=== PATIENT | male | born 1950 | race Caucasian/White ===

== ENCOUNTER 2018-05-13 10:50 | Inpatient (IN) | payer OTHER ==
[~2018-05-13] VITALS: Ht 175.3 cm; Wt 95.3 kg
[2018-05-13 10:52] VITALS: BP 205/98
[2018-05-13 11:38] LABS: ABSOLUTE EOSINOPHILS 0.1 thou/uL (0.0-0.7); ABSOLUTE LYMPHOCYTES 1.3 thou/uL (0.8-5.3); ABSOLUTE MONOCYTES 0.7 thou/uL (0.0-1.2); ABSOLUTE NEUTROPHILS 3.8 thou/uL (1.6-8.1); BASOPHILS 0.4 %; EOSINOPHILS 1.6 %; HEMATOCRIT 36.3 % (42.0-52.0); HEMOGLOBIN 12.2 gm/dL (14.0-18.0); LYMPHOCYTES 22.6 %; MCH 28.3 pg (26.0-34.0); MCHC 33.5 g/dL (28.0-37.0); MCV 84.5 fL (80.0-100.0); MPV 8.7 fl. (7.2-11.1); NUCLEATED RBCS 0 /100WBC; PLATELET COUNT* 173 thou/uL (150-400); POLYS 63.4 %; RDW-CV 14.3 % (10.5-14.5); WBC 5.9 thou/uL (4.0-11.0)
[2018-05-13 11:48] LABS: INR 1.1; PROTIME 10.8 Seconds (9.20-11.50)
[2018-05-13 11:50] LABS: CALCIUM 8.9 mg/dL (8.5-10.1); CREATININE 0.9 mg/dL (0.6-1.3); POTASSIUM 4.6 mmol/L (3.5-5.1)
[2018-05-13 12:00] LABS: ALBUMIN 3.5 g/dL (3.4-5.0); TOTAL BILIRUBIN 0.6 mg/dL (<0.1-1.0); TOTAL PROTEIN 7.4 g/dL (6.4-8.2); TROPONIN-I LEVEL 0.07 ng/mL (<0.06)
[2018-05-13 14:34] VITALS: BP 159/68
[2018-05-13 15:31] VITALS: BP 169/91
[2018-05-13 15:35] VITALS: BP 169/91
[2018-05-13] MEDS ORDERED: LUBRICANT 0.5-015 ML OPHTHALMIC (16:32)
[2018-05-13] MEDS ORDERED: NEURONTIN 300300 M1 PO (16:34)
[2018-05-13] MEDS ORDERED: IBUPROFEN 800800 M1 PO (16:35)
[2018-05-13] MEDS ORDERED: HUMALOG100 UNIT/1 SUBQ (16:37)
[2018-05-13] MEDS ORDERED: HUMALOG100 UNIT/2 SUBQ (16:41)
[2018-05-13] MEDS ORDERED: FLOMAX0.4 MG PO (16:43)
[2018-05-13] MEDS ORDERED: PREDNISOLONE ACE5 ML OPHTHALMIC (16:46)
[2018-05-13] MEDS ORDERED: AMLODIPINE BESY10 MG PO (16:48)
[2018-05-13] MEDS ORDERED: ASPIRIN81 M2 PO (16:49)
[2018-05-13] MEDS ORDERED: LIPITOR80 MG PO (16:49)
--- NOTE | 2018-05-13 16:49 | 2DMMODE ---
[place] [address] 2 D/M-MODE ECHOCARDIOGRAM Name: ARMANDO JIMENEZ Room: [address] IN [facility]#: [id number] Admission: 05/13/18 Attend Phys: Jose F Aldana, Discharge: Date of : 46 Date of Service: 05/13/18 1648 Report #: [id number] THIS REPORT FOR: //name// APPROVED REPORT Study performed: 05/13/2018 16:11:04 EXAM: Comprehensive 2D, Doppler, and color-flow Echocardiogram Patient Location: In-Patient Room #: [facility] Status: routine BSA: 2.12 HR: 69 bpm BP: 169/91 mmHg Rhythm: NSR Other Information Study Quality: Good Indications Congestive Heart Failure Chest Pain 2D Dimensions LVEF(%): 52.43 (>50%) IVSd: 15.09 (7-11mm) LVOT Diam: 19.41 (18-24mm) LVDd: 39.67 mm PWd: 11.07 (7-11mm) Ascending Ao: 30.68 (22-36mm) LVDs: 29.16 (25-40mm) Aortic Root: 31.25 mm Lovett's LVEF: 52.43 % Volumes Left Atrial Volume (Systole) LA ESV Index: 31.00 mL/m2 Aortic Valve AoV Peak Luis.: 1.28 m/s AO Peak Gr.: 6.55 mmHg LVOT Max P.35 mmHg AO Mean Gr.: 3.96 mmHg LVOT Mean P.13 mmHg LVOT Max V: 1.04 m/s AO V2 VTI: 25.61 cm LVOT Mean V: 0.67 m/s JHOAN (VTI): 2.67 cm2 LVOT V1 VTI: 23.10 [place] [address] 2 D/M-MODE ECHOCARDIOGRAM Name: ARMANDO JIMENEZ Room: [address] IN [facility].#: [id number] Admission: 05/13/18 Attend Phys: Jose F Aladna, Discharge: Date of : 46 Date of Service: 05/13/18 1648 Report #: [id number] E/A Ratio: 2.14 MV Decel. Time: 194.76 ms MV E Max Luis.: 0.96 m/s MV PHT: 56.48 ms MVA (PHT): 3.90 cm2 TDI E/Lateral E': 9.60 E/Medial E': 12.00 Medial E' Luis.: 0.08 m/s Lateral E' Luis.: 0.10 m/s Pulmonary Valve PV Peak Luis.: 0.76 m/s PV Peak Gr.: 2.33 mmHg Tricuspid Valve RAP Estimate: 5.00 mmHg TR Peak Gr.: 25.36 mmHg RVSP: 30.36 mmHg PA Pressure: 30.36 mmHg Left Ventricle The left ventricle is normal size. There is normal LV segmental wall motion. There is normal left ventricular wall thickness. Left ventricular systolic function is normal. The left ventricular ejection fraction is within the normal range. LVEF is 55-60%. Right Ventricle The right ventricle is normal size. The right ventricular systolic function is normal. Atria The left atrium size is normal. The right atrium size is normal. Aortic Valve The aortic valve is normal in structure. No aortic regurgitation is present. There is no aortic valvular stenosis. Mitral Valve The mitral valve is normal in structure. Mild mitral regurgitation. No evidence of mitral valve stenosis. Tricuspid Valve The tricuspid valve is normal in structure. Trace tricuspid regurgitation. Borderline pulmonary [place] [address] 2 D/M-MODE ECHOCARDIOGRAM Name: ARMANDO JIMENEZ Room: [address]#: [id number] Admission: 05/13/18 Attend Phys: Jose F Aldana, Discharge: Date of : 46 Date of Service: 05/13/18 1648 Report #: [id number] The pulmonary valve is normal in structure. There is no pulmonic valvular regurgitation. Great Vessels The aortic root is normal in size. IVC is normal in size and collapses with >50% inspiration Pericardium There is no pericardial effusion. <Conclusion> The left ventricle is normal size. There is normal left ventricular wall thickness. Left ventricular systolic function is normal. The left ventricular ejection fraction is within the normal range. LVEF is 55-60%. The right ventricle is normal size. The left atrium size is normal. The aortic valve is normal in structure. The mitral valve is normal in structure. Mild mitral regurgitation. The tricuspid valve is normal in structure. IVC is normal in size and collapses with >50% inspiration There is no pericardial effusion. There is normal LV segmental wall motion. <ELECTRONICALLY SIGNED> By: Shashank Yoo MD, FACC 05/13/181647 47 47 Shashank Yoo MD, FACC /INF
[2018-05-13] MEDS ORDERED: COREG25 MG PO (16:50)
[2018-05-13] MEDS ORDERED: HYDROCHLOROTHIA25 M1 PO (16:50)
[2018-05-13] MEDS ORDERED: COZAAR 50 MG TA50 M2 PO (16:51)
[2018-05-13] MEDS ORDERED: OMEPRAZOLE 20 M20 M1 PO (16:51)
[2018-05-13 19:30] VITALS: BP 151/76
--- NOTE | 2018-05-13 19:36 | EKG ---
[place] [address] ELECTROCARDIOGRAM REPORT Name: ARMANDO JIMENEZ Room: [address] IN [facility]#: [id number] Admission: 05/13/18 Attend Phys: Jose F Aldana MD Discharge: Date of : 46 Report #: [id number] THIS REPORT FOR: //name// [facility] ED Test Date: 2018-05-13 Test Time: 10:55:11 Pat Name: ARMANDO JIMENEZ Department: Room: Gender: Chestnut Tanner: [facility] : 1950 Requested By: Flaco Greenwood Order Number: [id number] MD: Giuseppe Espinoza Measurements Intervals [place] Rate: 82 P: 49 MO: 175 QRS: 68 QRSD: 99 T: QT: 319 QTc: 373 Interpretive Statements Sinus rhythm Nonspecific repol abnormality, lateral leads Baseline wander in lead(s) III,aVF,V1,V2,V3,V4,V5 No previous ECG available for comparison Electronically Signed On 05-13-2018 19:36:24 CDT by Giuseppe Espinoza [email or web address] <ELECTRONICALLY SIGNED> By: Giuseppe Espinoza MD, FACC 05/13/18 1936 1055 1055 Giuseppe Espinoza MD, [facility] /EPI
[2018-05-14] VITALS (7 sets, daily range): BP systolic 141–186; BP diastolic 70–79
[2018-05-14 04:28] LABS: ABSOLUTE EOSINOPHILS 0.1 thou/uL (0.0-0.7); ABSOLUTE LYMPHOCYTES 1.4 thou/uL (0.8-5.3); ABSOLUTE MONOCYTES 0.9 thou/uL (0.0-1.2); BASOPHILS 0.3 %; EOSINOPHILS 1.9 %; HEMATOCRIT 35.8 % (42.0-52.0); HEMOGLOBIN 12.3 gm/dL (14.0-18.0); LYMPHOCYTES 26.5 %; MCH 28.7 pg (26.0-34.0); MCHC 34.3 g/dL (28.0-37.0); MCV 83.8 fL (80.0-100.0); MONOCYTES 16.1 %; NUCLEATED RBCS 0 /100WBC; PLATELET COUNT* 155 thou/uL (150-400); POLYS 55.2 %; RBC 4.27 mil/uL (4.50-6.00); RDW-CV 14.1 % (10.5-14.5); WBC 5.4 thou/uL (4.0-11.0)
[2018-05-14 04:47] LABS: CALCIUM 8.7 mg/dL (8.5-10.1); CREATININE 0.9 mg/dL (0.6-1.3)
--- NOTE | 2018-05-14 20:05 | CARDNUC ---
[place] [address] CARDIAC NUCLEAR IMAGING REPORT Name: ARMANDO JIMENEZ Room: [address] IN [facility]#: [id number] Admission: 05/13/18 Attend Phys: Jose F Aldana, Discharge: Date of : 46 Date of Service: 05/14/182004 Report #: [id number] THIS REPORT FOR: //name// APPROVED REPORT Study performed: 05/14/2018 08:19:00 Indication: Chest pain, Dyspnea Patient Location: In-Patient Room #: 229 Stress Tech: Juany Ruby Stress Nurse: Jacqueline Valentine RN Ht: 5 ft 9 in Wt: 217 lbs BSA: 2.14 m2 BMI: 32.04 Medical History Medical History: CHF, Diabetes, HTN, Hyperlipidemia, PVD Medications: enoxaparin, hydralazine, asa, ntg Allergies: No known drug allergies Cardiac Risk Factors: Age, DM, HTN, Hyperlipidemia, FHX of CAD Previous Cardiac Procedures: - Exercise History: Sedentary Meds Held (24 hrs): Coreg-home med Resting Data Rest SPECT myocardial perfusion imaging was performed in supine position 30 minutes following the intravenous injection of 10.5 mCi of Tc-99m Sestamibi. Time of rest injection: 14:00 The images were gated to evaluate regional wall motion and calculate left ventricular ejection fraction. Administration Route: IV Administration Site: Left Wrist Pharmacologic Stress Pharmacologic stress test was performed by injecting Regadenoson 0.4 mg IV push over 10-15 seconds immediately followed by the intravenous injection of 31.8 mCi of Tc-99m Sestamibi. Time of stress injection: 15:50 Administration Route: IV Administration Site: Left Wrist Heart Rate at time of stress injection: 94 bpm. Gated Stress SPECT was performed 40 [place] [address] CARDIAC NUCLEAR IMAGING REPORT Name: ARMANDO JIMENEZ Room: [address] IN [facility].#: [id number] Admission: 05/13/18 Attend Phys: Jose F Aldana, Discharge: Date of : 46 Date of Service: 05/14/182004 Report #: [id number] injection. The images were gated to evaluate regional wall motion and calculate left ventricular ejection fraction. Prone imaging was performed. Stress Test Details Stress Test: Pharmacologic stress testing performed using 0.4 mg of regadenoson per 5 mL given IV over 10 seconds. Reason for pharmacologic stress test: physical limitation. HR Max Heart Rate (APMHR): 150 bpm Resting HR: 75 bpm Target HR (85% APMHR): 127 bpm Max HR Achieved: 94 bpm % of APMHR: 62 Recovery HR: 86 bpm BP Resting BP: 185/101 mmHg Recovery BP: 182/82 mmHg ECG Resting ECG: Sinus Rhythm, nonspecific ST-T abnormalities Stress ECG: Sinus Rhythm, nonspecific ST-T abnormalities ST Change: None Arrhythmia: None Recovery ECG: Sinus Rhythm, nonspecific ST-T abnormalities Recovery ST Change: None Recovery Arrhythmia: None Clinical Reason for Termination: Completed protocol Stress Symptoms: None Exercise duration: 0 min sec Exercise capacity: 1.0 METs Patient had atypical chest pain prior to stress resting that actually resolved with exercise. Nurse Comments Patient had cp prior to test, rated 5 (worse when pt pushed on chest), resolved during test, no further chest discomfort. Stress ECG Conclusion The baseline 12-lead EKG shows sinus rhythm with nonspecific ST segment depression in the inferolateral leads. [place] [address] CARDIAC NUCLEAR IMAGING REPORT Name: ARMANDO JIMENEZ Room: [address]#: [id number] Admission: 05/13/18 Attend Phys: Jose F Aldana, Discharge: Date of : 46 Date of Service: 05/14/182004 Report #: [id number] and post Lexiscan stress show sinus rhythm with no significant ST or T wave changes when compared to baseline. There were no stress-induced arrhythmias. Study Quality Study: Good Artifact: Mild Diaphragmatic artifact Study Data At rest, the left ventricular ejection fraction was 77%.. Post stress, the left ventricular ejection was 78%.. TID = 0.89. Perfusion There is a moderate size mild intensity partially reversible defect noted in the basal portion of the inferior wall. No other defects are identified. Wall Motion Global wall motion appears normal. Nuclear Conclusion ECG Findings: non-diagnostic Clinical Findings: non-diagnostic Nuclear Findings: positive for ischemia Left Ventricular Function: preserved Risk Study: moderate Myocardial perfusion images suggest ischemia involving the basal portion of the inferior wall. Global left particular systolic function is well-preserved. This is a moderate risk study. <Conclusion> The baseline 12-lead EKG shows sinus rhythm with nonspecific ST segment depression in the inferolateral leads. EKGs obtained during and post Lexiscan stress show sinus rhythm with no significant ST or T wave changes when compared to baseline. There were no stress-induced arrhythmias. <ELECTRONICALLY SIGNED> By: Giuseppe Espinoza MD, FACC 05/14/182004 04 04 Giuseppe Espinoza MD, FACC /INF
[2018-05-15] VITALS (15 sets, daily range): BP systolic 149–180; BP diastolic 65–76
[2018-05-15 06:10] LABS: GLYCOHEMOGLOBIN (HGB A1C) 7.6 % (4.8-5.6)
[2018-05-16] VITALS (8 sets, daily range): BP systolic 154–170; BP diastolic 65–77
[2018-05-16 05:04] LABS: HEMATOCRIT 37.8 % (42.0-52.0); HEMOGLOBIN 12.8 gm/dL (14.0-18.0); MCH 28.4 pg (26.0-34.0); MCHC 33.9 g/dL (28.0-37.0); MCV 83.7 fL (80.0-100.0); MPV 8.4 fl. (7.2-11.1); RBC 4.52 mil/uL (4.50-6.00); RDW-CV 14.2 % (10.5-14.5)
[2018-05-16 05:35] LABS: ALBUMIN 3.5 g/dL (3.4-5.0); ALKALINE PHOSPHATASE 76 U/L (46-116); ANION GAP 9 mmol/L (7-16); BUN 16 mg/dL (7-18); CALCIUM 8.4 mg/dL (8.5-10.1); CHLORIDE 101 mmol/L (98-107); CHOLESTEROL 122 mg/dL (<200); CO2 27 mmol/L (21-32); CREATININE 0.9 mg/dL (0.6-1.3); GLUCOSE 308 mg/dL (70-99); HDL CHOLESTEROL 29 mg/dL (>40); LDL CHOLESTEROL 75 mg/dL (<100); POTASSIUM 3.9 mmol/L (3.5-5.1); SGOT 23 U/L (15-37); SGPT 44 U/L (30-65); SODIUM 137 mmol/L (136-145); TC:HDL 4.2 Ratio (Not establshd); TOTAL PROTEIN 7.4 g/dL (6.4-8.2); TRIGLYCERIDE 90 mg/dL (<150); TROPONIN-I LEVEL 0.12 ng/mL (<0.06); VLDL 18 mg/dL (<40)
[2018-05-16 05:36] LABS: SERUM ASSESSMENT CLEAR
--- NOTE | 2018-05-16 15:22 | EKG ---
[place] [address] ELECTROCARDIOGRAM REPORT Name: ARMANDO JIMENEZ Room: [address] ADM IN M.R.#: [id number] Admission: 05/13/18 Attend Phys: Jose F Aldana MD Discharge: Date of : 46 Report #: [id number] THIS REPORT FOR: //name// [facility] Test Date: 2018-05-16 Test Time: 08:44:35 Pat Name: ARMANDO JIMENEZ Department: Room: [address] Gender: M Color Dipper: : 1950 Requested By: Shashank Yoo Order Number: [id number] Leti MD: Shashank Yoo Measurements Intervals [place] Rate: 74 P: 35 NE: 175 QRS: 54 QRSD: 96 T: -9 QT: 418 QTc: 464 Interpretive Statements Sinus rhythm Borderline repolarization abnormality Electronically Signed On 05-16-2018 15:22:11 CDT by Shashank Yoo [email or web address] <ELECTRONICALLY SIGNED> By: Shashank Yoo MD, [facility] 05/16/18 1522 0844 0844 Shashank Yoo MD, FACC /EPI
--- NOTE | 2018-05-17 10:52 | CARD ---
[address] [address] CARDIAC CATH REPORT Name: ARMANDO JIMENEZ Room: [address] IN [facility]#: [id number] Admission: 05/13/18 Attend Phys: Jose F Aldana MD Discharge: 05/16/18 Date of : 46 Report #: [id number] THIS REPORT FOR: //name// APPROVED REPORT Study performed: 05/15/2018 15:52:23 Patient Details Patient Status: In-Patient Room #: 229 The patient is a 68 year-old male Event Personnel Shashank Yoo Parts Inspector, Jackie Bustamante RN Customer Resource Specialist, Ayaka Mayorga RTFito Monitor, Nora Laird Monitor, Tiago Stevens Scrub Procedures Performed Art Access - R femoral artery* Left Heart Cath w/or w/o Coronaries [id number] [facility] Place w/wo Plasty Single LAD [id number] REGINALD Place w/wo Plasty Single RCA 991074 PTCA Single Vessel OM [id number] PCISINGLE , Selective Right and Left Coronary Angiography; percutaneous coronary intervention with stenting of the mid right coronary artery the proximalmid LAD and angioplasty at the ostium of the second diagonal branch, Left Ventriculogram Indication Unstable angina Risk Factors Hypercholesterolemia, Hypertension Admission/Lab Medications/Medications given during procedure Aspirin, Platelet Aff. Inhib., Angiomax bolus and infusion Procedure Narrative The patient was brought electively to the Cardiac Catheterization Laboratory and was prepped and draped in a sterile manner. The right femoral was infiltrated with 2% Lidocaine subcutaneous anesthesia. A 6fr Ultimum Sheath sheath was inserted into the right femoral artery. Coronary angiography was performed using coronary diagnostic catheters. The right coronary system was accessed and visualized with a Diagnostic catheter. The left coronary system was accessed and visualized with a Diagnostic catheter. The left ventricle was accessed and visualized with a Diagnostic catheter. Left ventricular/Aortic Valve gradient assessed . [place] [address] CARDIAC CATH REPORT Name: ARMANDO JIMENEZ Room: [address]#: [id number] Admission: 05/13/18 Attend Phys: Jose F Aldana MD Discharge: 05/16/18 Date of : 46 Report #: [id number] performed in BARRIOS projection. Pre-demployment femoral angiogram was performed . Closure device was deployed with a 6 Fr Angioseal STS 6Fr. The patient tolerated the procedure well and there were no complications associated with the procedure. Intraoperative Conscious Sedation Sedation start time: 16:42 Case end Time: 1800 Fentanyl 150 mcg Versed 6 mg Fluoro Time: 17.2 minutes Dose: DAP 541260 cGycm2 4180.47 mGy Contrast Type and Amount: Visipaque 430 ml Coronary Angiography The patient's coronary anatomy is right dominant. Diagnostic Cath Left Main 0% narrowing LAD 80% focal proximal 80% tubular mid LAD stenosis Diagonal 1 75% tubular proximal with 90% focal mid first diagonal stenosis Diagonal 2 80% ostial narrowing Circumflex 50 Percent tubular proximal narrowing Right Coronary Large dominant vessel with 80% mid vessel stenosis and local thrombus suggested at the site Hemodynamics The aortic pressure is 187/77 mmHg with a mean of mmHg. The left ventricular pressure is 191/4 mmHg with a mean of mmHg. The left ventricular end diastolic pressure is 17 mmHg. There was no gradient across the aortic valve upon pullback. PCI Technique Lesion Anticoagulation was achieved with Angiomax. Percutaneous coronary intervention was performed on the mid right coronary artery. The lesion stenosis prior to intervention was 80% with HERBERTH 3 flow. A Launcher JR 4 6FR Guide Catheter was used to engage the ostium. A IG: ProwaterFlex 180CM Interventional Guidewire was used to cross the lesion. BALLOON DILATION A Balloon catheter Trek RX 2.5 X 12 was inserted and inflated up to 12.00atm for 8seconds. [place] [address] CARDIAC CATH REPORT Name: ARMANDO JIMENEZ Room: [address]#: [id number] Admission: 05/13/18 Attend Phys: Jose F Aldana MD Discharge: 05/16/18 Date of : 46 Report #: [id number] A drug-eluting stent Xience Alpine RX 2.75X18 was inserted and inflated up to 12.00atm for 8seconds. Additional Inflation: 16.00atm for 11seconds. POST STENT DEPLOYMENT BALLOON DILATION A Balloon catheter NC Trek RX 3.0 X 12 was inserted and inflated up to 15.00atm for 8seconds. Additional Inflation: 15.00atm for 7seconds. Final angiography reveals 10 % stenosis with HERBERTH 3 flow. PCI Technique Lesion 2 Percutaneous Coronary Intervention was performed on the second diagnonal branch segment. A 6F XB LAD 3.5 Guide Catheter was used to engage the ostium. A IG: BMW 190cm Interventional Guidewire was used to cross the lesion. Balloon Dilation A Balloon catheter Mini Trek RX 2.0 X 8 was inserted and inflated up to 14.00atm for 11seconds. Additional Inflation: 17.00atm for 11seconds. Final angiography reveals 50 % stenosis with HERBERTH 3 flow. PCI Technique Lesion 3 Percutaneous Coronary Intervention was performed on the proximalmid-mid left anterior descending artery segment. The lesion stenosis prior to intervention was 80% with HERBERTH 3 flow. A 6F XB LAD 3.5 Guide Catheter was used to engage the ostium. A IG: ProwaterFlex 180CM Interventional Guidewire was used to cross the lesion. Balloon Dilation A Balloon catheter Trek RX 2.5 X 15 was inserted and inflated up to 12.00atm for 8seconds. Additional Inflation: 12.00atm for 6seconds. Stent Deployment A drug-eluting stent Xience Alpine RX 2.5X28 was inserted and inflated up to 12.00atm for 9seconds. Additional Inflation: 14.00atm for 8seconds. Additional Inflation: 15.00atm for 9seconds. Post Stent Deployment Balloon Dilation A Balloon catheter NC Trek RX 2.75 X 12 was inserted and inflated up to 15.00atm for 9seconds. Additional Inflation: 15.00atm for 8seconds. [address] [address] CARDIAC CATH REPORT Name: ARMANDO JIMENEZ Room: [address] IN [facility]ito.#: [id number] Admission: 05/13/18 Attend Phys: Jose F Aldana MD Discharge: 05/16/18 Date of : 46 Report #: [id number] Final angiography reveals 10 % stenosis with HERBERTH 3 flow. Conclusion #1 significant multivessel coronary artery disease characterized by the following: A 80% focal proximal and 80% tubular mid LAD stenosis with 75% proximal and 90% mid first diagonal stenosis and with 80% ostial second diagonal stenosis B nondominant circumflex with 50 percent tubular proximal narrowing C dominant right coronary artery with 80% mid vessel stenosis and local thrombus suggested that the site #2 moderate systemic systolic hypertension #3 normal left ventricular ejection fraction, estimated at 60% #4 successful percutaneous coronary intervention with deployment of drug-eluting stent at site of 80% mid right coronary stenosis with 10% residual narrowing and HERBERTH-3 flow the distal vessel #5 successful percutaneous coronary intervention with deployment of drug-eluting stent spanning the 80% focal proximal and 80% tubular mid LAD stenosis with 10% residual narrowing and HERBERTH-3 flow the distal vessel #6 successful percutaneous transluminal coronary angioplasty of the site of 80% ostial second diagonal narrowing with 50% residual following final dilatation and HERBERTH-3 flow the distal vessel Recommendations Cardiac Risk Reduction Program Aggressive Medical Therapy Medications Administered Aspirin (any) Prasugrel [address] [address] CARDIAC CATH REPORT Name: ARAMNDO JIMENEZ Room: [address] IN M.R.#: [id number] Admission: 05/13/18 Attend Phys: Jose F Aldana MD Discharge: 05/16/18 Date of : 46 Report #: [id number] Diagnostic Cath Approved by: Shashank Yoo MD Date/Time: 05/17/18 at 1049 hrs. <ELECTRONICALLY SIGNED> By: Shashank Yoo MD, FACC 05/17/18 1051 105 105Shashank Yoo MD, FAC /INF
== END 2018-05-16 17:50 | disposition home or self-care (01) | DRG 246 ==
LOC: M.ERS 10:50 → M.TBA-ER 12:14 → M.2W 12:14
PROVIDERS: Emergency Medicine; Internal Medicine; ADMIT Internal Medicine
PROC: 4A02XM4 Measurement of Cardiac Total Activity, External Approach (ICD-10-PCS; principal; 2018-05-14)
PROC: 3E033HZ Introduction of Radioactive Substance into Peripheral Vein, Percutaneous Approach (ICD-10-PCS; principal; 2018-05-14)
PROC: 027135Z Dilation of Coronary Artery, Two Arteries with Two Drug-eluting Intraluminal Devices, Percutaneous Approach (ICD-10-PCS; 2018-05-15)
PROC: B2111ZZ Fluoroscopy of Multiple Coronary Arteries using Low Osmolar Contrast (ICD-10-PCS; 2018-05-15)
PROC: B2151ZZ Fluoroscopy of Left Heart using Low Osmolar Contrast (ICD-10-PCS; 2018-05-15)
PROC: 4A023N7 Measurement of Cardiac Sampling and Pressure, Left Heart, Percutaneous Approach (ICD-10-PCS; 2018-05-15)
DX: I25.110 Atherosclerotic heart disease of native coronary artery with unstable angina pectoris (principal); I50.31 Acute diastolic (congestive) heart failure; E78.5 Hyperlipidemia, unspecified; I11.0 Hypertensive heart disease with heart failure; E11.9 Type 2 diabetes mellitus without complications; M25.471 Effusion, right ankle; M25.472 Effusion, left ankle; Z82.49 Family history of ischemic heart disease and other diseases of the circulatory system; Z90.49 Acquired absence of other specified parts of digestive tract

== ENCOUNTER 2018-06-10 08:50 | Observation (INO) | payer OTHER ==
[~2018-06-10] VITALS: Ht 175.3 cm; Wt 102.5 kg
[2018-06-10] VITALS (18 sets, daily range): BP systolic 137–171; BP diastolic 51–73
--- NOTE | ~2018-06-10 | H ---
[address] [address] HISTORY AND PHYSICAL Name: ARMANDO JIMENEZ Room: [address] [place] Lopez#: [id number] Admission: 06/10/18 Attend Phys: Shashank Yoo MD, Discharge: 06/11/18 Date of : 46 Report #: [id number] THIS REPORT FOR: //name// Please refer to the History and Physical performed in the physician's office. By: 1350Medical Records Staff BHARAT /TERESO
[~2018-06-10 08:50] MED LIST: AMLODIPINE BESY10 MG PO; ASPIRIN81 M2 PO; COREG25 MG PO; COZAAR 50 MG TA50 M2 PO; FLOMAX0.4 MG PO; HUMALOG100 UNIT/1 SUBQ; HUMALOG100 UNIT/2 SUBQ; HYDROCHLOROTHIA25 M1 PO; IBUPROFEN 800800 M1 PO; LIPITOR80 MG PO; LUBRICANT 0.5-015 ML OPHTHALMIC; NEURONTIN 300300 M1 PO; OMEPRAZOLE 20 M20 M1 PO; PREDNISOLONE ACE5 ML OPHTHALMIC
[2018-06-10] MEDS ORDERED: LASIX 20 MG TAB20 MG PO (09:19)
[2018-06-10] MEDS ORDERED: METFORMIN HCL500 MG PO (09:21)
[2018-06-10] MEDS ORDERED: EFFIENT10 MG PO (09:22)
[2018-06-10] MEDS ORDERED: KLOR-CON 1010 MEQ PO (09:23)
[2018-06-10 10:07] LABS: HEMATOCRIT 35.5 % (42.0-52.0); MCH 28.2 pg (26.0-34.0); MCV 83.2 fL (80.0-100.0); MPV 8.9 fl. (7.2-11.1); RBC 4.26 mil/uL (4.50-6.00); RDW-CV 13.8 % (10.5-14.5)
[2018-06-10 10:15] LABS: ANION GAP 8 mmol/L (7-16); BUN 17 mg/dL (7-18); CALCIUM 8.8 mg/dL (8.5-10.1); CHLORIDE 102 mmol/L (98-107); CO2 27 mmol/L (21-32); GLUCOSE 216 mg/dL (70-99); POTASSIUM 3.7 mmol/L (3.5-5.1); SODIUM 137 mmol/L (136-145)
[2018-06-10 10:16] LABS: APTT 26.7 Seconds (25.0-31.3); INR 1.1; PROTIME 11.1 Seconds (9.20-11.50)
[2018-06-10 10:21] LABS: ALBUMIN 3.6 g/dL (3.4-5.0); ALKALINE PHOSPHATASE 64 U/L (46-116); CHOLESTEROL 102 mg/dL (<200); HDL CHOLESTEROL 30 mg/dL (>40); LDL CHOLESTEROL 55 mg/dL (<100); SGOT 30 U/L (15-37); SGPT 58 U/L (30-65); TC:HDL 3.4 Ratio (Not establshd); TOTAL BILIRUBIN 0.8 mg/dL (<0.1-1.0); TOTAL PROTEIN 7.4 g/dL (6.4-8.2); TRIGLYCERIDE 89 mg/dL (<150); VLDL 18 mg/dL (<40)
[2018-06-10 10:22] LABS: SERUM ASSESSMENT Clear
--- NOTE | 2018-06-10 14:30 | NUR ---
PT. ARRIVED TO ROOM 219 POST REPORT FROM STEPHY IN [facility]. PT. A/OX4, BUT GROGGY FROM MEDICATIONS. PT. SPOUSE AT BEDSIDE. PT. ON RA @ 98%, VSS, MONITOR PLACED TRACING SR/SB. PT. DENIES CURRENT PAIN/SOB. RIGHT GROIN DRESSING INTACT, SMALL AREA OF BLOOD NOTED AND MARKED. PER STEPHY SHE DISCUSSED WITH DR. CASTAÑEDA PRIOR TO TRANSFER. FULL ASSESSMENT AND ADMISSION PROCESS COMPLETED, REFER TO CHARTING. PRESSURE HELD TO RIGHT GROIN WHEN DRESSING BECAME SATURATED. RIGHT GROIN DRESSING REPLACED, CURRENTLY C/D/I
--- NOTE | 2018-06-10 19:01 | NUR ---
PT. STABLE THROUGH REMAINDER OF SHIFT. SMALL AREA OF DRIED BLOOD TO NEW DRESSING, OTHERWISE D/I. PT. CURRENTLY SITTING IN BED, TOLERATING WELL. NO C/O PAIN. REMAINS ON IVF'S @ 125 PER ORDERS. PER JLUIS FROM [facility], PT. WILL NEED SCRIPT FOR NITRO AT DC BECAUSE HE DOES NTO CURRENTLY HAVE ONE. HOURLY ROUNDING COMPLETED THROUGH OUT THE DAY FOR PT. SAFETY.
[2018-06-11] VITALS: BP 140/62; BP 146/74
--- NOTE | 2018-06-11 03:18 | NUR ---
PATIENT RESTED IN BED, NO ACUTE CHANGES. PATIENT DID NOT SHOW SIGNS OF DISTRESS. FALL PRECAUTIONS IN PLACE, CALL LIGHT WITH IN REACH, HOURLY ROUNDING OBSERVED.
[2018-06-11 04:00] VITALS: BP 143/59
[2018-06-11 05:28] LABS: HEMATOCRIT 36.7 % (42.0-52.0); HEMOGLOBIN 12.2 gm/dL (14.0-18.0); MCH 28.5 pg (26.0-34.0); MCHC 33.4 g/dL (28.0-37.0); MCV 85.3 fL (80.0-100.0); MPV 8.8 fl. (7.2-11.1); RBC 4.3 mil/uL (4.50-6.00); RDW-CV 14.2 % (10.5-14.5); WBC 4.6 thou/uL (4.0-11.0)
[2018-06-11 05:47] LABS: ALBUMIN 3.4 g/dL (3.4-5.0); ALKALINE PHOSPHATASE 66 U/L (46-116); ANION GAP 6 mmol/L (7-16); BUN 11 mg/dL (7-18); CALCIUM 8.1 mg/dL (8.5-10.1); CHLORIDE 104 mmol/L (98-107); CO2 26 mmol/L (21-32); CREATININE 0.9 mg/dL (0.6-1.3); GLUCOSE 187 mg/dL (70-99); POTASSIUM 4.3 mmol/L (3.5-5.1); SGOT 26 U/L (15-37); SGPT 54 U/L (30-65); SODIUM 136 mmol/L (136-145); TOTAL BILIRUBIN 0.9 mg/dL (<0.1-1.0); TOTAL PROTEIN 6.6 g/dL (6.4-8.2); TROPONIN-I LEVEL <0.06 ng/mL (<0.06)
[2018-06-11 08:00] VITALS: BP 149/71
--- NOTE | 2018-06-11 08:00 | NUR ---
ASSUMED PT. CARE AND RECEIVED REPORT AT 0730. PT A/OX4, VSS, MONITOR ON TRACING SR. PT. DENIES CURRENT PAIN/SOB. ON RA @ 97%. RIGHT GROIN DRESSING DRY AND INTACT WITH DRIED DRAINAGE PRESENT- CONSISTANT WITH PREVIOUS RESULTS. SALCEDO REMOVED THIS MORNING, PT ALREADY ABLE TO URINATE POST REMOVAL. FULL ASSESSMENT COMPLETED, REFER TO CHARTING. CALL LIGHT IN REACH, WILL CONTINUE WITH PLAN OF CARE.
--- NOTE | 2018-06-11 09:38 | EKG ---
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: [facility] : 1950 Requested By: Shashank Yoo Order Number: [id number] Reading MD: Javier Soria Measurements Intervals [place] Rate: 59 P: 39 [place]: 195 QRS: 48 QRSD: 104 T: 29 QT: 423 QTc: 419 Interpretive Statements Sinus rhythm ST elevation, consider anterior injury Compared to ECG 05/16/2018 08:44:35 ST (T wave) deviation now present Myocardial infarct finding now present Electronically Signed On 06-11-2018 9:38:23 CDT by Javier Soria [email or web address] <ELECTRONICALLY SIGNED> By: Javier Soria MD, [facility] 06/11/18 0938 1338 1338 Javier Soria MD, [facility] /EPI
--- NOTE | 2018-06-11 09:38 | EKG ---
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: [facility] : 1950 Requested By: Shashank Yoo Order Number: [id number] Reading MD: Javier Soria Measurements Intervals [place] Rate: 66 P: 34 GA: 186 QRS: 50 QRSD: 102 T: 29 QT: 405 QTc: 425 Interpretive Statements Sinus rhythm Borderline ST elevation, anterior leads Compared to ECG 05/16/2018 08:44:35 ST (T wave) deviation now present Electronically Signed On 06-11-2018 9:37:47 CDT by Javier Soria [email or web address] <ELECTRONICALLY SIGNED> By: Javier Soria MD, [facility] 06/11/18 0937 0911 0911 Javier Soria MD, [facility] /EPI
--- NOTE | 2018-06-11 09:41 | EKG ---
[place] [address] ELECTROCARDIOGRAM REPORT Name: ARMANDO JIMENEZ Room: [address]R.#: [id number] Admission: 06/10/18 Attend Phys: Shashank Yoo MD, Discharge: Date of : 46 Report #: [id number] THIS REPORT FOR: //name// [facility] Test Date: 2018-06-11 Test Time: 08:44:16 Pat Name: ARMANDO JIMENEZ Department: Room: [facility] Gender: M Scales Inspector: : 1950 Requested By: Shashank Yoo Order Number: [id number] Reading MD: Javier Soria Measurements Intervals [place] Rate: 72 P: 40 AL: 209 QRS: 55 QRSD: 99 T: -6 QT: 362 QTc: 397 Interpretive Statements Sinus rhythm Borderline T abnormalities, inferior leads Compared to ECG 05/16/2018 08:44:35 T-wave abnormality now present Electronically Signed On 06-11-2018 9:41:01 CDT by Javier Soria [email or web address] <ELECTRONICALLY SIGNED> By: Javier Soria MD, [facility] 06/11/1841 3 Javier Soria MD, [facility] /EPI
[2018-06-11 10:39] VITALS: BP 171/71
[2018-06-11] MEDS ORDERED: LANTUS100 UNIT/M SUBQ (11:29)
--- NOTE | 2018-06-11 12:02 | NUR ---
DC ORDERS RECEIVED. IV AND MONITOR REMOVED. PT. GIVEN DC INSTRUCTIONS, VERBALIZED UNDERSTANDING. KAREN CASE CONTACTED FOR NITRO SCRIPT, STATES SHE WILL SEND TO [place] [address] TODAY. PT. LEFT VIA WHEELCHAIR TO RETURN HOME IN PERSONAL VEHICLE, ALL BELONGINGS ACCOUNTED FOR.
--- NOTE | 2018-06-12 15:27 | D ---
[address] [address] DISCHARGE SUMMARY Name: ARMANDO JIMENEZ Room: [address] Johnny Lopez#: [id number] Admission: 06/10/18 Attend Phys: Shashank Yoo MD, Discharge: 06/11/18 Date of : 46 Report #: [id number] THIS REPORT FOR: //name// CC: Shashank Rhoades DATE OF SERVICE: 06/11/2018 FINAL DISCHARGE DIAGNOSES: 1. Unstable angina. 2. Coronary artery disease, status post percutaneous coronary intervention to the LAD and first diagonal. 3. Hypertension. 4. Type 2 diabetes. 5. Hyperlipidemia. PROCEDURES: 06/11/2018 -- left heart catheterization, selective coronary arteriography and percutaneous coronary intervention to the LAD and first diagonal. HOSPITAL COURSE: The patient is a pleasant 68-year-old male with complex coronary artery disease, presented with acute coronary syndrome 2 weeks ago and underwent stenting of a high-grade mid right coronary stenosis with stenting of the proximal-mid LAD as well. He continued to experience some angina post-discharge, not as bad as he had experienced with an acute coronary syndrome. He was felt to have complex disease involving the first diagonal, which was not approached in the acute setting. He underwent repeat catheterization on 06/10/18, which revealed widely patent mid right coronary and proximal-mid LAD stents. He continued to have significant first diagonal and proximal LAD as well as distal LAD stenosis. I performed angioplasty in the distal LAD, atherectomy with stenting of the first diagonal, angioplasty with stenting of the very proximal LAD. The patient did well post-procedurally and experienced no chest discomfort or dyspnea. He ambulated in the hallways without difficulty, and there was good hemostasis at the femoral site of catheterization. Laboratory on 06/11 revealed a sodium of 136, potassium 4.3, BUN 11, creatinine 0.9, hemoglobin 12.2, white blood cell count 4600, with 128,000 platelets. He was discharged to home in stable condition on amlodipine 10 mg daily, enteric coated aspirin 81 mg daily, atorvastatin 80 mg daily, carvedilol 25 mg b.i.d., furosemide 20 mg daily, gabapentin 300 mg at bedtime, ibuprofen 800 mg on a p.r.n. basis as frequently as every 8 hours, [place] [address] DISCHARGE SUMMARY Name: ARMANDO JIMENEZ Room: [address] Johnny Lopez#: [id number] Admission: 06/10/18 Attend Phys: Shashank Yoo MD, Discharge: 06/11/18 Date of : 46 Report #: [id number] schedule a.c., losartan 100 mg daily. Metformin 500 mg b.i.d., to be resumed on 06/13. Omeprazole 20 mg daily, potassium chloride 10 mEq daily, Effient 10 mg daily, tamsulosin 0.4 mg daily. Followup was scheduled with my nurse practitioner Ivana Green, on 06/18 at 1500 hours and myself on 07/23/2018 at 1330 hours. Thus, the patient is discharged to home in stable condition on the aforementioned medications, with followup as iterated above. <ELECTRONICALLY SIGNED> By: Shashank Yoo MD, [facility] 06/12/18 1527 1738 1803Shashank Yoo MD, FACC /nt
--- NOTE | 2018-06-15 12:03 | CARD ---
[address] [address] CARDIAC CATH REPORT Name: ARMANDO JIMENEZ Room: [address] Johnny Lopez#: [id number] Admission: 06/10/18 Attend Phys: Shashank Yoo MD, Discharge: 06/11/18 Date of : 46 Report #: [id number] THIS REPORT FOR: //name// APPROVED REPORT Study performed: 06/10/2018 11:01:58 Patient Details Patient Status: Out-Patient Room #: The patient is a 68 year-old male Event Personnel Shashank Yoo Guest Experience Captain, Beatrice Millan Fashion Editor, Ayaka Mayorga RTR Monitor, Tiago Stevens Scrub Procedures Performed Art Access - R femoral artery* Left Heart Cath w/or w/o Coronaries C REGINALD Place w/wo Plasty Single DIAG PTCA Single Vessel LAD PCISINGLE Atherectomy w/wo Plasty Addl DIAG 1 ATHADDL Indication Unstable angina Risk Factors Family History, Hypercholesterolemia, Hypertension Admission/Lab Medications/Medications given during procedure Aspirin, Platelet Aff. Inhib., Angiomax bolus and infusion Procedure Narrative The patient was brought electively to the Cardiac Catheterization Laboratory and was prepped and draped in a sterile manner. The right femoral was infiltrated with 2% Lidocaine subcutaneous anesthesia. A Eldridge 6 FR sheath was inserted into the right femoral artery. Coronary angiography was performed using coronary diagnostic catheters. The right coronary system was accessed and visualized with a Diagnostic 6FR JR4 catheter. The left coronary system was accessed and visualized with a Diagnostic 6FR JL4 catheter. The left ventricle was accessed and visualized with a Diagnostic 6fr straight pigtail catheter. Left ventricular/Aortic Valve gradient assessed . An aortogram of the BARRIOS was performed. Closure device was deployed with a 6 Fr Angioseal STS 6Fr. Hemostasis was obtained with manual pressure following sheath removal without any complications. The patient tolerated the procedure well and [place] [address] CARDIAC CATH REPORT Name: ARMANDO JIMENEZ Room: [address]#: [id number] Admission: 06/10/18 Attend Phys: Shashank Yoo MD, Discharge: 06/11/18 Date of : 46 Report #: [id number] associated with the procedure. There was no hematoma. Intraoperative Conscious Sedation Sedation start time: 11:33 Case end Time: 1:13 Fentanyl 125 mcg Versed 5 mg Fluoro Time: 25.2 minutes Dose: DAP [id number] cGycm2 135 mGy Contrast Type and Amount: Visipaque 550 ml Hemodynamics The aortic pressure is 156/67 mmHg with a mean of 55 mmHg. The left ventricular pressure is 157/3 mmHg with a mean of mmHg. The left ventricular end diastolic pressure is 17 mmHg. Pullback from the left ventricle to the aorta revealed no gradient across the aortic valve. PCI Technique Lesion Anticoagulation was achieved with Angiomax. Percutaneous coronary intervention was performed on the distal left anterior descending artery segment. The lesion stenosis prior to intervention was 90% with HERBERTH 3 flow. A 6F XB LAD 3.5 Guide Catheter was used to engage the ostium. A ProwaterFlex 180CM Interventional Guidewire was used to cross the lesion. BALLOON DILATION A Balloon catheter Mini Trek RX 2.0 X 12 was inserted and inflated up to 8.00atm for 10seconds. Additional Inflation: 8.00atm for 8seconds. Additional Inflation: 8:00atm for 10seconds. Final angiography reveals 20 % stenosis with HERBERTH 3 flow. PCI Technique Lesion 2 Percutaneous Coronary Intervention was performed on the first diagnonal branch segment. The lesion stenosis prior to intervention was 90% with HERBERTH 3 flow. A 6F XB LAD 3.5 Guide Catheter was used to engage the ostium. A BMW 190cm Interventional Guidewire was used to cross the lesion. Balloon Dilation A Balloon catheter Trek RX 2.25 X 15 was inserted and inflated up to 15.00atm for 12seconds. Additional Inflation: 15.00atm for 10seconds. NC TREK RX 2.5X15 INSERTED INTO THE 1ST DIAGNONAL BRANCH SEGMENT, BALLOON INFLATED FOR 14 SECONDS @ 15 RENETTA, 8 SECONDS FOR 16 RENETTA, 15 SEC FOR 14 RENETTA, 12 SECONDS FOR 15 RENETTA ANGIOSCULPT PTCA 2.5X10[place] [address] CARDIAC CATH REPORT Name: ARMANDO JIMENEZ Room: [address] Johnny Lopez#: [id number] Admission: 06/10/18 Attend Phys: Shashank Yoo MD, Discharge: 06/11/18 Date of : 46 Report #: [id number] INSERTED UP TO 10:00 AMT FOR 20 SECONDS, 10:00 RENETTA FOR 17 SECONDS, 10:00 RENETTA FOR 11 SECONDS Stent Deployment A drug-eluting stent Xience Alpine RX 2.5X28 was inserted and inflated up to 10.00atm for 14seconds. Additional Inflation: 12.00atm for 6seconds. Additional Inflation: 12.00atm for 6seconds. Post Stent Deployment Balloon Dilation A Balloon catheter NC Trek RX 2.5 X 15 was inserted and inflated up to 16.00atm for 11seconds. Additional Inflation: 18.00atm for 9seconds. Final angiography reveals 0 % stenosis with HERBERTH 3 flow. PCI Technique Lesion 3 Percutaneous Coronary Intervention was performed on the proximal left anterior descending artery segment. The lesion stenosis prior to intervention was 70% with HERBERTH 3 flow. A 6F XB LAD 3.5 Guide Catheter was used to engage the ostium. A ProwaterFlex 180CM Interventional Guidewire was used to cross the lesion. Balloon Dilation A Balloon catheter Trek RX 2.75 X 12 was inserted and inflated up to 16.00atm for 11seconds. Stent Deployment A stent Resolute RX 3X12 was inserted and inflated up to 12.00atm for 8seconds. Additional Inflation: 14.00atm for 6seconds. Additional Inflation: 15.00atm for 10seconds. Final angiography reveals 5 % stenosis with HERBERTH 3 flow. Conclusion #1 significant coronary artery disease characterized by the following: A 70% ostial proximal LAD stenosis with a widely patent stent beyond this with 90% tubular first diagonal narrowing and 60% ostial second diagonal narrowing with 90% distal LAD stenosis B 60% narrowing of the proximal portion of the nondominant circumflex C 30% narrowing of the midportion of the [place] [address] CARDIAC CATH REPORT Name: ARMANDO JIMENEZ Room: [address]#: [id number] Admission: 06/10/18 Attend Phys: Shashank Yoo MD, Discharge: 06/11/18 Date of : 46 Report #: [id number] artery with 75% tubular narrowing of the proximalmidportion of the posterior descending branch of the distal right coronary artery #2 mild systemic systolic hypertension #3 normal left ventricular systolic function, estimate ejection fraction being 60% #4 successful percutaneous transluminal coronary angioplasty at the site of 90% distal LAD stenosis with 20% residual residual narrowing #5 successful percutaneous coronary intervention with atherectomy and stenting of the first diagonal branch of the LAD with 0% residual narrowing and HERBERTH-3 flow the distal vessel #6 successful percutaneous coronary intervention with deployment of drug-eluting stent at the site of 70% ostial proximal LAD stenosis with 0% residual narrowing and HERBERTH-3 flow the distal vessel Recommendations Cardiac Risk Reduction Program Aggressive Medical Therapy Medications Administered Aspirin (any) Prasugrel Diagnostic Cath Approved by: Shashank Yoo MD Date/Time: 06/15/2018 12:01:36 <ELECTRONICALLY SIGNED> By: Shashank Yoo MD, FACC 06/15/18 1203 1203 1203Shashank Yoo MD, FACC /INF
== END 2018-06-11 11:55 | disposition home or self-care (01) ==
LOC: M.CL 08:50 → M.TBA-CV 13:24 → M.2W 13:24
PROVIDERS: ADMIT Internal Medicine
DX: I25.110 Atherosclerotic heart disease of native coronary artery with unstable angina pectoris (principal); I10 Essential (primary) hypertension; E11.9 Type 2 diabetes mellitus without complications; E78.2 Mixed hyperlipidemia; I87.2 Venous insufficiency (chronic) (peripheral); E66.9 Obesity, unspecified; K21.9 Gastro-esophageal reflux disease without esophagitis; R79.1 Abnormal coagulation profile; Z82.49 Family history of ischemic heart disease and other diseases of the circulatory system; Z87.891 Personal history of nicotine dependence; Z68.33 Body mass index [BMI] 33.0-33.9, adult

== ENCOUNTER 2020-03-10 17:48 | Inpatient (IN) | payer OTHER ==
[~2020-03-10] VITALS: Ht 177.8 cm; Wt 90.4 kg
[2020-03-10] VITALS (13 sets, daily range): BP systolic 147–187; BP diastolic 72–100
--- NOTE | ~2020-03-10 | EKG ---
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
[~2020-03-10 17:48] MED LIST changes: +EFFIENT10 MG PO; +KLOR-CON 1010 MEQ PO; +LANTUS100 UNIT/M SUBQ; +LASIX 20 MG TAB20 MG PO; +METFORMIN HCL500 MG PO
[2020-03-10 19:59] LABS: ABSOLUTE EOSINOPHILS 0.1 thou/uL (0.0-0.7); ABSOLUTE LYMPHOCYTES 1.4 thou/uL (0.8-5.3); ABSOLUTE MONOCYTES 0.8 thou/uL (0.0-1.2); ABSOLUTE NEUTROPHILS 8.5 thou/uL (1.6-8.1); BASOPHILS 0.4 %; EOSINOPHILS 0.9 %; HEMATOCRIT 40.6 % (42.0-52.0); HEMOGLOBIN 14.2 gm/dL (14.0-18.0); LYMPHOCYTES 13.2 %; MCH 28.9 pg (26.0-34.0); MCHC 34.9 g/dL (28.0-37.0); MCV 82.8 fL (80.0-100.0); MONOCYTES 7.4 %; MPV 9.2 fl. (7.2-11.1); NUCLEATED RBCS 0 /100WBC; PLATELET COUNT* 200 thou/uL (150-400); POLYS 78.1 %; RBC 4.91 mil/uL (4.50-6.00); RDW-CV 13.7 % (10.5-14.5); WBC 10.9 thou/uL (4.0-11.0)
[2020-03-10 20:06] LABS: ANION GAP 11 mmol/L (7-16); BUN 17 mg/dL (7-18); CALCIUM 8.6 mg/dL (8.5-10.1); CHLORIDE 100 mmol/L (98-107); CO2 25 mmol/L (21-32); CREATININE 0.9 mg/dL (0.6-1.3); GLUCOSE 396 mg/dL (70-99); POTASSIUM 4.1 mmol/L (3.5-5.1); SODIUM 136 mmol/L (136-145)
[2020-03-10 20:11] LABS: ALBUMIN 3.5 g/dL (3.4-5.0); ALKALINE PHOSPHATASE 77 U/L (46-116); MAGNESIUM 1.8 mg/dL (1.8-2.4); SGOT 174 U/L (15-37); SGPT 51 U/L (30-65); TOTAL BILIRUBIN 1.1 mg/dL (<0.1-1.0); TOTAL PROTEIN 7.4 g/dL (6.4-8.2)
[2020-03-10 20:23] LABS: CHOLESTEROL 177 mg/dL (<200); HDL CHOLESTEROL 37 mg/dL (>40); LDL CHOLESTEROL 126 mg/dL (<100); TC:HDL 4.8 Ratio (Not establshd); TRIGLYCERIDE 73 mg/dL (<150); VLDL 15 mg/dL (<40)
[2020-03-10 20:24] LABS: INR 1.2
[2020-03-10 20:25] LABS: APTT > 198.4 Seconds (25.0-31.3); SERUM ASSESSMENT Clear
[2020-03-11] VITALS (19 sets, daily range): BP systolic 119–161; BP diastolic 62–83
[2020-03-11 02:58] LABS: ANION GAP 15 mmol/L (7-16); BUN 18 mg/dL (7-18); CALCIUM 9.6 mg/dL (8.5-10.1); CHLORIDE 103 mmol/L (98-107); CO2 20 mmol/L (21-32); CREATININE 0.8 mg/dL (0.6-1.3); GLUCOSE 318 mg/dL (70-99); MAGNESIUM 2.1 mg/dL (1.8-2.4); POTASSIUM 4.4 mmol/L (3.5-5.1); SODIUM 138 mmol/L (136-145)
[2020-03-11 03:36] LABS: TROPONIN-I LEVEL > 200.00 ng/mL (<0.06)
[2020-03-11 03:37] LABS: HEMATOCRIT 42.2 % (42.0-52.0); HEMOGLOBIN 14.5 gm/dL (14.0-18.0); MCH 28.5 pg (26.0-34.0); MCHC 34.3 g/dL (28.0-37.0); MCV 83.1 fL (80.0-100.0); MPV 8.7 fl. (7.2-11.1); RBC 5.08 mil/uL (4.50-6.00); WBC 13.3 thou/uL (4.0-11.0)
--- NOTE | 2020-03-11 08:09 | EKG ---
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: : 1950 Requested By: Ariel Millan Order Number: [id number] MD: Giuseppe Espinoza Measurements Intervals [place] Rate: 75 P: -17 NE: 159 QRS: 68 QRSD: 105 T: 72 QT: 383 QTc: 428 Interpretive Statements Sinus rhythm Slight ST segment elevation inferior leads Baseline wander in lead(s) V1,V2 Compared to ECG 06/11/2018 08:44:16 T-wave abnormality no longer present Electronically Signed On 03-11-2020 8:07:45 CDT by Giuseppe Espinoza [email or web address] <ELECTRONICALLY SIGNED> By: Giuseppe Espinoza MD, FACC 03/11/20 0807 175 175 Giuseppe Espinoza MD, FAC /EPI
--- NOTE | 2020-03-11 16:02 | CARD ---
[address] [address] CARDIAC CATH REPORT Name: ARMANDO JIMENEZ Room: [address] IN .R.#: [id number] Admission: 03/10/20 Attend Phys: Tiago Pineda MD Discharge: Date of : 46 Report #: [id number] THIS REPORT FOR: //name// cc: Dennis Rhoades Vincent R. DO ~ APPROVED REPORT Study performed: 03/10/2020 18:04:57 Patient Details Patient Status: In-Patient Room #: The patient is a 69 year-old male Event Personnel Denilson Jiang Mill Operator Helper, Nila Sheets RN Flagstone Layer, Jenny Spain RN Monitor, Robert Freeman RTR Scrub Procedures Performed Right femoral artery access, Right femoral vein access, Right radial artery access, Left Heart Cath and coronaries, REGINALD SINGLE RCA and PTCA Indication Abnormal ECG, STEMI (>0 to less than or equal to 6 hours), Chest pain Risk Factors Hypercholesterolemia, Coronary Artery DiseaseHypertension, Diabetes Previous Procedures/Diagnoses Previous PCI Admission/Lab Medications/Medications given during procedure Heparin Unfract., Heparin 8000 units IV bolus, Apresoline 10 mg Procedure Narrative The patient was brought emergently to the Cardiac Catheterization Laboratory and was prepped and draped in a sterile manner. The right wrist was infiltrated with 1% Lidocaine subcutaneous anesthesia. A 6F [place] sheath was inserted into the right radial artery. Coronary angiography was performed using coronary diagnostic catheters. The right coronary system was accessed and visualized with a 6F JR4 catheter. The left coronary system was accessed and visualized with a 6F JL4 catheter. The left ventricle was [place] [address] CARDIAC CATH REPORT Name: ARMANDO JIMENEZ Mary Room: [address]#: [id number] Admission: 03/10/20 Attend Phys: Tiago Pineda MD Discharge: Date of : 46 Report #: [id number] a 6F Pigtail catheter. Left ventricular/Aortic Valve gradient assessed via catheter pullback. Left ventriculogram was performed in BARRIOS projection. Closure device was deployed with a 6 Fr vascband. The patient tolerated the procedure well and there were no complications associated with the procedure. There was no hematoma. Attempted procedure from the right femoral artery. Because of tortousity, an Amplatz wire was used. However, the patient suffered a retrograde dissection of the aorta, but remained hemodynamically stable. It was decided to proceed from the radial approach. The patient had no available IV access. It was therefore decided to place a 7 ind[place]ian sheath in the right femoral vein. The sheaths were sutured in place at the end of the procedure. Intraoperative Conscious Sedation Sedation start time: 19:13 Case end Time: 19:51 Fentanyl 50.0 mcg Versed 4.0 mg Fluoro Time: 9.1 minutes Dose: DAP 037426 cGycm2 1616 mGy Contrast Type and Amount: Visipaque 130 ml Coronary Angiography The patient's coronary anatomy is right dominant. Diagnostic Cath Left Main 0% stenosis LAD Stent in proximal LAD with 0% stenosis Diagonal 1 60% proximal stenosis Circumflex 0% stenosis Right Coronary mid stent with 100% acute occlusion with thrombus noted Ramus large vessel with proximal stent with 0% stenosis. However, there appeared to be an ostial 90% stenosis proximal to the stent. Left Ventriculography The left ventricular ejection fraction is estimated to be 40-45%. Left ventricular wall motion abnormalities are present. There is 1+ mitral insufficiency. Moderate hypokinesis noted of the inferior wall and the distal anterolateral wall. Hemodynamics The aortic pressure is 172/78 mmHg with a mean of 114 mmHg. The left ventricular pressure is 171/12 mmHg with a mean of 29 mmHg. The left ventricular end diastolic pressure is 25 mmHg. [place] [address] CARDIAC CATH REPORT Name: ARMANDO JIMENEZ Mary Room: [address]#: [id number] Admission: 03/10/20 Attend Phys: Tiago Pineda MD Discharge: Date of : 46 Report #: [id number] across the aortic valve upon pullback. Pullback from the left ventricle to the aorta revealed no gradient across the aortic valve. PCI Technique Lesion Anticoagulation was achieved with Heparin. Patient was preloaded with Effient. Percutaneous coronary intervention was performed on the mid right coronary artery. The lesion stenosis prior to intervention was 100% with HERBERTH 0 flow. A 6F JCR4 Guide Catheter was used to engage the rca ostium. A 190 BMW Interventional Guidewire was used to cross the lesion. BALLOON DILATION A Balloon catheter Euphora SC 2.5 mm x 10 mm was inserted and inflated up to 10atm for 8seconds. Repeat angiography revealed the following post-dilatation results: 50% stenosis. Additional Inflation: 10atm for 7seconds. STENT DEPLOYMENT A drug-eluting stent Damion RX 2.75 mm x 30 mm was inserted and inflated up to 11atm for 12seconds. Repeat angiography revealed the following post-stent deployment results: 0% stenosis. Additional Inflation: 13atm for 11seconds. Additional Inflation: 22atm for 19seconds. Final angiography reveals 0 % stenosis with HERBERTH 3 flow. Conclusion 1. acute occlusion of a previous stent placed in the mid RCA 2. Patent stent in the proximal LAD 3. Patent stent in the proximal ramus artery, although there appeared to be a 90% stenosis of the ostium of the ramus branch proximal to the stent 4. successful placement of a drug eluting stent in the rca 5. LVEF 40-45% Recommendations Aggressive Medical Therapy <ELECTRONICALLY SIGNED> By: Denilson Jiang MD, [facility] 03/11/201599 99 99Daobed Jiang MD, FAC /INF
--- NOTE | 2020-03-11 16:07 | CON ---
[address] [address] CONSULTATION Name: ARMANDO JIMENEZ Room: [address] IN M.R.#: [id number] Admission: 03/10/20 Attend Phys: Tiago Pineda MD Discharge: Date of : 46 Report #: [id number] THIS REPORT FOR: //name// cc: Dennis Rhoades Vincent R. DO ~ THIS REPORT FOR: //name// CC: Tiago Rhoades DO DATE OF SERVICE: 03/10/2020 CARDIOLOGY CONSULTATION HISTORY OF PRESENT ILLNESS: The patient is a 69-year-old white male who came to the Emergency Room complaining of chest pain. The patient has an extensive and complicated past medical history. He presented in 04/2018 with acute coronary syndrome. He was seen by my partner, Dr. Yoo, who stented the right coronary artery and LAD. He has actually done well since that time. The patient has been on Effient and aspirin since that time. The patient is not very active at this time. He was doing well until this afternoon about 4:00 in the afternoon. He did work in the yard. He felt a pressure in his chest, became diaphoretic, short of breath, nausea and vomited. Called paramedics. He was brought here to [place] by ambulance approximately 2 hours later. He continued to have chest pain. I was asked to see him for further evaluation and treatment. He denies exertional dyspnea, cough, shortness of breath, palpitations, syncope. He has had no bleeding. PAST MEDICAL HISTORY: He has a history of pancreatitis, apparently has had 17 abdominal surgeries with removal of his pancreas. He has had GI bleed in the past. He had cholecystectomy. He has a history of diabetes, hypertension, and hyperlipidemia. MEDICATIONS: Coreg, omeprazole, Flomax, amlodipine, Neurontin, Lasix, Pravachol, lisinopril, aspirin, Lipitor, hydrochlorothiazide, metformin. ALLERGIES: He has no known drug allergies. FAMILY HISTORY: His father had heart disease. SOCIAL HISTORY: He is . He and his live nearby. 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 Quit smoking years ago. No alcohol abuse. REVIEW OF SYSTEMS: He has had no history of stroke, asthma, liver disease. He had a skin cancer removed in the past. No kidney [place] [address] CONSULTATION Name: ARMANDO JIMENEZ Room: [address]#: [id number] Admission: 03/10/20 Attend Phys: Tiago Pineda MD Discharge: Date of : 46 Report #: [id number]. PHYSICAL EXAMINATION: GENERAL: Revealed an elderly male, appeared in moderate distress. VITAL SIGNS: His blood pressure is 160/90, pulse is 90. HEENT: He is anicteric. Conjunctivae are pink. Mucous membranes moist. NECK: Veins do not appear distended. No carotid bruits. CHEST: Clear to auscultation. CARDIOVASCULAR: Regular rate and rhythm. ABDOMEN: Soft. EXTREMITIES: Had no edema. Dorsalis pedis pulse 2+ bilaterally. SKIN: Cool and dry. NEUROLOGIC: Nonfocal. DIAGNOSTIC DATA: His ECG done by the paramedics showed a sinus rhythm. There was a mm of ST segment elevation in II, III, aVF, reciprocal ST segment depression in V2 and V3. Lab work is pending. IMPRESSION AND RECOMMENDATIONS: 1. Acute inferior wall myocardial infarction. Recommend cardiac catheterization. 2. Coronary artery disease with multiple stents. 3. 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 4. Hypertension. The patient is on a beta becky, calcium becky, NOLBERTO inhibitor. 5. Diabetes. The patient has an insulin pump in place. 6. Hyperlipidemia. The patient is on a statin drug. 7. Peripheral arterial disease. <ELECTRONICALLY SIGNED> By: Denilson Jiang MD, FACC 03/11/20 1607 02 2159Daobed Jiang MD, FACC /nt
--- NOTE | 2020-03-11 16:14 | EKG ---
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
--- NOTE | 2020-03-11 16:14 | EKG ---
[place] [address] ELECTROCARDIOGRAM REPORT Name: ARMANDO JIMENEZ Room: [address] IN [facility]#: [id number] Admission: 03/10/20 Attend Phys: Tiago Pineda, Discharge: Date of : 46 Date of Service: 03/11/20814 Report #: [id number] THIS REPORT FOR: //name// [facility] Test Date: 2020-03-11 Test Time: 08:15:08 Pat Name: ARMANDO JIMENEZ Department: Room: [address] Gender: M Psychologist Engineering: : 1950 Requested By: Denilson Jiang Order Number: [id number] Leti MD: Denilson Jiang Measurements Intervals [place] Rate: 81 P: 47 MO: 167 QRS: 99 QRSD: 96 T: -25 QT: 397 QTc: 461 Interpretive Statements Sinus rhythm Right axis deviation Borderline T abnormalities, inferior leads Compared to ECG 03/10/2020 no change Electronically Signed On 03-11-2020 16:13:01 CDT by Denilson Jiang [email or web address] <ELECTRONICALLY SIGNED> By: Denilson Jiang MD, [facility] 03/11/20 1613 0815 0815 Denilson Jiang MD, [facility] /EPI
[2020-03-12] VITALS (7 sets, daily range): BP systolic 99–117; BP diastolic 47–58
[2020-03-12 04:49] LABS: HEMATOCRIT 34.8 % (42.0-52.0); MCHC 34.8 g/dL (28.0-37.0); MCV 83.2 fL (80.0-100.0); MPV 9.2 fl. (7.2-11.1); RBC 4.18 mil/uL (4.50-6.00); RDW-CV 14.2 % (10.5-14.5); WBC 11.7 thou/uL (4.0-11.0)
[2020-03-12 04:51] LABS: HEMOGLOBIN 12.1 gm/dL (14.0-18.0)
[2020-03-12 04:52] LABS: CALCIUM 8.6 mg/dL (8.5-10.1); CREATININE 1.5 mg/dL (0.6-1.3); MAGNESIUM 1.9 mg/dL (1.8-2.4); POTASSIUM 3.9 mmol/L (3.5-5.1)
[2020-03-12] MEDS ORDERED: NITROSTAT0.4 M1 SUBLING (11:36)
--- NOTE | 2020-03-12 12:53 | EKG ---
[place] [address] ELECTROCARDIOGRAM REPORT Name: ARMANDO JIMENEZ Room: [address] IN [facility]#: [id number] Admission: 03/10/20 Attend Phys: Tiago Pineda, Discharge: Date of : 46 Date of Service: 03/10/202135 Report #: [id number] THIS REPORT FOR: //name// [facility] Test Date: 2020-03-10 Test Time: 21:36:23 Pat Name: ARMANDO JIMENEZ Department: Room: [address] Gender: M Part Maker: : 1950 Requested By: Tiago Pineda Order Number: [id number] Leti MD: Denilson Jiang Measurements Intervals [place] Rate: 89 P: 31 IA: 168 QRS: 99 QRSD: 101 T: 39 QT: 380 QTc: 463 Interpretive Statements Sinus rhythm Borderline right axis deviation Minimal ST depression, anterolateral leads Compared to ECG 03/10/2020 17:54:18 no change Electronically Signed On 03-12-2020 12:51:29 CDT by Denilson Jiang [email or web address] <ELECTRONICALLY SIGNED> By: Denilson Jiang MD, FAC 03/12/20 1251 35 Denilson Jaing MD, [facility] /EPI
== END 2020-03-12 13:35 | disposition home or self-care (01) | DRG 246 ==
LOC: M.ERS 17:48 → M.CL 17:48 → M.TBA-CV 20:28 → M.ICU 20:28 → M.2W 03-11 19:54
PROVIDERS: Emergency Medicine Emergency Medical Services; ADMIT Internal Medicine
PROC: B211YZZ Fluoroscopy of Multiple Coronary Arteries using Other Contrast (ICD-10-PCS; principal; 2020-03-10)
PROC: 027034Z Dilation of Coronary Artery, One Artery with Drug-eluting Intraluminal Device, Percutaneous Approach (ICD-10-PCS; principal; 2020-03-10)
PROC: B215YZZ Fluoroscopy of Left Heart using Other Contrast (ICD-10-PCS; principal; 2020-03-10)
PROC: 4A023N7 Measurement of Cardiac Sampling and Pressure, Left Heart, Percutaneous Approach (ICD-10-PCS; principal; 2020-03-10)
DX: I21.19 ST elevation (STEMI) myocardial infarction involving other coronary artery of inferior wall (principal); I50.21 Acute systolic (congestive) heart failure; I11.0 Hypertensive heart disease with heart failure; E78.5 Hyperlipidemia, unspecified; I25.10 Atherosclerotic heart disease of native coronary artery without angina pectoris; N14.1 Nephropathy induced by other drugs, medicaments and biological substances; T50.8X5A Adverse effect of diagnostic agents, initial encounter; E10.65 Type 1 diabetes mellitus with hyperglycemia; E10.51 Type 1 diabetes mellitus with diabetic peripheral angiopathy without gangrene; Z79.82 Long term (current) use of aspirin; Z79.899 Other long term (current) drug therapy; Z90.410 Acquired total absence of pancreas; I25.2 Old myocardial infarction; Z79.4 Long term (current) use of insulin; Z87.891 Personal history of nicotine dependence; Z90.49 Acquired absence of other specified parts of digestive tract; Z82.49 Family history of ischemic heart disease and other diseases of the circulatory system; Y92.89 Other specified places as the place of occurrence of the external cause

== ENCOUNTER 2020-03-14 14:32 | Inpatient (IN) | payer OTHER ==
[~2020-03-14] VITALS: Ht 177.8 cm; Wt 91.0 kg
[~2020-03-14 14:32] MED LIST changes: +NITROSTAT0.4 M1 SUBLING
[2020-03-14 14:36] VITALS: BP 102/81
[2020-03-14 15:29] LABS: ABSOLUTE MONOCYTES 1.5 thou/uL (0.0-1.2); ABSOLUTE NEUTROPHILS 6.8 thou/uL (1.6-8.1); BASOPHILS 0.3 %; EOSINOPHILS 0.1 %; HEMATOCRIT 33.2 % (42.0-52.0); HEMOGLOBIN 11.8 gm/dL (14.0-18.0); MCH 29.3 pg (26.0-34.0); MCHC 35.5 g/dL (28.0-37.0); MCV 82.6 fL (80.0-100.0); MONOCYTES 16.1 %; NUCLEATED RBCS 0 /100WBC; PLATELET COUNT* 165 thou/uL (150-400); POLYS 72.5 %; RBC 4.02 mil/uL (4.50-6.00); RDW-CV 13.7 % (10.5-14.5); WBC 9.4 thou/uL (4.0-11.0)
[2020-03-14 15:34] LABS: CALCIUM 8.3 mg/dL (8.5-10.1); CREATININE 1.2 mg/dL (0.6-1.3); POTASSIUM 3.2 mmol/L (3.5-5.1)
[2020-03-14 15:36] LABS: INR 1.1; PROTIME 11.5 Seconds (9.20-11.50)
[2020-03-14 15:45] LABS: ALBUMIN 2.8 g/dL (3.4-5.0); TOTAL PROTEIN 6.9 g/dL (6.4-8.2)
[2020-03-14 17:15] VITALS: BP 156/80
[2020-03-14 20:20] VITALS: BP 150/87
[2020-03-15 00:29] VITALS: BP 147/75
[2020-03-15 04:00] VITALS: BP 142/76
[2020-03-15 07:34] VITALS: BP 159/82
[2020-03-15 11:30] VITALS: BP 160/91
--- NOTE | 2020-03-15 14:09 | EKG ---
[place] [address] ELECTROCARDIOGRAM REPORT Name: ARMANDO JIMENEZ Room: [address]#: [id number] Admission: 03/14/20 Attend Phys: Sahil Dunham Discharge: Date of : 46 Date of Service: 03/14/20 1435 Report #: [id number] THIS REPORT FOR: //name// [facility] ED Test Date: 2020-03-14 Test Time: 14:35:15 Pat Name: ARMANDO JIMENEZ Department: Room: [facility] Gender: M Forms Designer: DARELL : 1950 Requested By: Ariel Millan Order Number: [id number] MD: Denilson Jiang Measurements Intervals [place] Rate: 100 P: 39 NE: 154 QRS: 79 QRSD: 108 T: -11 QT: 353 QTc: 456 Interpretive Statements Sinus tachycardia Borderline low voltage, extremity leads Compared to ECG 03/11/2020 08:15:08 Sinus rhythm no longer present Right-axis deviation no longer present T-wave abnormality no longer present Electronically Signed On 03-15-2020 14:07:25 CDT by Denilson Jiang [email or web address] <ELECTRONICALLY SIGNED> By: Denilson Jiang MD, FAC 03/15/20 1407 1435 1435 Denilson Jiang MD, FAC /EPI
[2020-03-15 16:00] VITALS: BP 146/75
[2020-03-15 20:20] VITALS: BP 114/69
[2020-03-16] VITALS (7 sets, daily range): BP systolic 94–133; BP diastolic 53–76
[2020-03-16 05:20] LABS: CREATININE 1.2 mg/dL (0.6-1.3); MAGNESIUM 1.9 mg/dL (1.8-2.4)
[2020-03-16 05:36] LABS: POTASSIUM 2.9 mmol/L (3.5-5.1)
--- NOTE | 2020-03-16 08:06 | CON ---
[address] [address] CONSULTATION Name: ARMANDO JIMENEZ Room: [address] Johnny Lopez#: [id number] Admission: 03/14/20 Attend Phys: Chasity Gupta Discharge: Date of : 46 Report #: [id number] THIS REPORT FOR: //name// cc: Dennis Rhoades Vincent R. DO ~ THIS REPORT FOR: //name// CC: Dennis Dunham CARDIOLOGY CONSULTATION HISTORY OF PRESENT ILLNESS: I was asked by Dr. Dunham to see this 69-year-old white male in Cardiology consultation for evaluation and treatment of chest pain with an elevated troponin as well as congestive heart failure. His congestive heart failure appears to be acute on chronic combined heart failure. He has history of coronary artery disease and previous myocardial infarction and previous coronary stents. He was admitted on 03/10/[address] elevation CO. He had stents placed. He did have a bump in his creatinine and contrast nephropathy was suspected. He was discharged home on 03/12/2020. Because of the bump in his creatinine, his losartan was discontinued, as was his Lasix. He was only on 20 of Lasix at that time. I believe he was on 100 mg of losartan, although I am not sure. He began developing over the weekend increasing shortness of breath and dyspnea on exertion. He had some paroxysmal nocturnal dyspnea, but no alise orthopnea. He then came in yesterday with a dull substernal chest discomfort that was not like his previous heart pain, which he said was a very sharp pain and was a 10 on a scale of 10. This discomfort was dull and was a 4 on a scale of 10. He said he had a feeling that his lungs were congested and he in fact appeared to have some evidence of congestive heart failure on his chest x-ray and he had a BNP elevation as well. His NT-proBNP was 7735. His creatinine was 1.2 with a BUN of 23. He did not have any radiation of his chest discomfort and the only associated symptom was shortness of breath. He does have chronic edema in his lower extremities, he says. He was given Lasix in the Emergency Room and feels much better today. He is no longer having any chest discomfort or difficulty with his breathing. PAST MEDICAL HISTORY: Essentially as described above and includes insulin-dependent diabetes mellitus, essential hypertension and hypercholesterolemia. He apparently has a history of congestive heart failure as well. LABORATORY DATA: His EKG shows normal sinus rhythm. There is evidence of an old inferior myocardial infarction. There is no clearcut ST segment elevation anywhere, nor for that matter ST segment depression. There are small Q-waves in inferior leads, however. His troponins apparently were quite elevated last week. I believe they went to [address] Jiang. So, when he came in at this time, his initial troponin was 19 and then dropped to 14 and then jh [facility] [address] [place] [address] CONSULTATION Name: ARMANDO JIMENEZ Room: [address] Johnny Lopez#: [id number] Admission: 03/14/20 Attend Phys: Chasity Gupta Discharge: Date of : 46 Report #: [id number] to 19 again and then jh to 20 again, that is over a course of some 13 hours. REVIEW OF SYSTEMS: Essentially as per the history of present illness. He has no other symptoms. Some 45 different complaints in 14 different system categories were reviewed. Please see our review of systems form. The systems reviewed include central nervous system, general, respiratory, cardiovascular, endocrine, gastrointestinal, genitourinary, hematologic, lymphatic, allergic, immunologic, psychiatric, musculoskeletal, skin, eyes, ears, nose, mouth, and throat. SOCIAL HISTORY: He does not smoke, drink or use illegal drugs. FAMILY HISTORY: Positive for coronary heart disease. ALLERGIES: He has no known allergies. HOME MEDICATIONS: Included amlodipine 10 mg daily, aspirin 81 mg daily, Lipitor 80 mg daily, carvedilol 25 mg b.i.d., Neurontin 300 mg at bedtime, Lantus insulin 50 units b.i.d., Humalog is given from a pump p.r.n., he has a sliding scale, he has p.r.n. nitroglycerin, omeprazole 20 mg daily, Effient 10 mg daily and tamsulosin 0.4 mg daily. PHYSICAL EXAMINATION: GENERAL: He presents as a well-developed, well-nourished white male in no acute distress. VITAL SIGNS: His pulse was 80 and regular, blood pressure is 159/82, temperature was 99 degrees, respirations are 16 and regular. HEENT: His head was atraumatic. Eyes clear. NECK: Supple. There is no jugular venous distention or hepatojugular reflux. Thyroid is not enlarged. There is no adenopathy. SKIN: Warm and dry. Mucous membranes are moist. LUNGS: Clear to auscultation and percussion. HEART: Revealed normal first and second heart sound. There is soft S4. There is no S3. There are no murmurs, rubs, thrills, heaves or gallops. PMI is nondisplaced. ABDOMEN: Soft, flat and nontender. No palpable masses, no organomegaly. EXTREMITIES: Reveal no cyanosis, clubbing or edema. NEUROLOGIC: The patient mentated normally, talked normally, moved all extremities normally. IMPRESSION: 1. Chest pain that is likely related to congestive heart failure. 2. Elevated troponin secondary to his prior infarct last week. 3. Chronic combined congestive heart failure. 4. Coronary artery disease. 5. Status [place] [address] CONSULTATION Name: ARMANDO JIMENEZ Room: [address] Johnny Lopez#: [id number] Admission: 03/14/20 Attend Phys: Chasity Gupta Discharge: Date of : 46 Report #: [id number] 6. Status post coronary stents. 7. Insulin-dependent diabetes mellitus. 8. Essential hypertension. 9. Hypercholesterolemia. RECOMMENDATION: Get him back on his regular medications, give him another dose of Lasix a day and check an echocardiogram. Please see my orders. Thank you very much for asking me to see the patient. If there are any questions, please feel free to contact me. <ELECTRONICALLY SIGNED> By: Gerard Chambers MD, [facility] 03/16/20 0806 1214 [id number]. Jesse Chambers MD, FACC /nt
--- NOTE | 2020-03-16 10:04 | 2DMMODE ---
[place] [address] 2 D/M-MODE ECHOCARDIOGRAM Name: ARMANDO JIMENEZ Room: [address] Johnny Lopez#: [id number] Admission: 03/14/20 Attend Phys: Sahil Dunham Discharge: Date of : 46 Date of Service: 03/16/20 1002 Report #: [id number] THIS REPORT FOR: cc: Dennis Rhoades Vincent R. DO Liston, Michael J. MD [facility] ~ APPROVED REPORT Study performed: 03/16/2020 09:03:06 EXAM: Comprehensive 2D, Doppler, and color-flow Echocardiogram Patient Location: In-Patient BSA: 2.09 HR: 85 bpm BP: 133/67 mmHg Other Information Study Quality: Good Indications Congestive Heart Failure 2D Dimensions IVSd: 11.32 (7-11mm) LVOT Diam: 17.69 (18-24mm) LVDd: 34.70 mm PWd: 11.41 (7-11mm) Ascending Ao: 24.21 (22-36mm) LVDs: 25.99 (25-40mm) Aortic Root: 24.15 mm Volumes Left Atrial Volume (Systole) LA ESV Index: 17.80 mL/m2 Aortic Valve AoV Peak Luis.: 0.84 m/s AO Peak Gr.: 2.83 mmHg LVOT Max P.15 mmHg AO Mean Gr.: 1.71 mmHg LVOT Mean P.54 mmHg LVOT Max V: 0.54 m/s AO V2 VTI: 13.45 cm LVOT Mean V: 0.34 m/s JHOAN (VTI): 1.69 cm2 LVOT V1 VTI: 9.25 cm Mitral Valve MV Decel. Time: 206.28 [place] [address] 2 D/M-MODE ECHOCARDIOGRAM Name: ARMANDO JIMENEZ [address] [id number] Admission: 03/14/20 Attend Phys: Sahil Dunham Discharge: Date of : 46 Date of Service: 03/16/20 1002 Report #: [id number] MV PHT: 59.82 ms MVA (PHT): 3.68 cm2 TDI Medial E' Luis.: 0.10 m/s Lateral E' Luis.: 0.09 m/s Pulmonary Valve PV Peak Luis.: 0.83 m/s PV Peak Gr.: 2.75 mmHg Tricuspid Valve RAP Estimate: 5.00 mmHg TR Peak Gr.: 29.98 mmHg RVSP: 34.98 mmHg PA Pressure: 34.98 mmHg Left Ventricle The left ventricle is normal size. There is hypokinesis of the basal to mid inferolateral and lateral wall. Mild concentric left ventricular hypertrophy. Left ventricular systolic function is mildly decreased. LVEF is 50-55%. Transmitral Doppler flow pattern suggests restrictive physiology. Right Ventricle The right ventricle is normal size. The right ventricular systolic function is normal. Atria The left atrium size is normal. The right atrium size is normal. Aortic Valve The aortic valve is normal in structure. No aortic regurgitation is present. There is no aortic valvular stenosis. Mitral Valve The mitral valve is normal in structure. Mild mitral regurgitation. No evidence of mitral valve stenosis. Tricuspid Valve The tricuspid valve is normal in structure. Trace tricuspid regurgitation. The RVSP is 30-35 mmHg. Pulmonic Valve The pulmonary valve is normal in structure. There is no pulmonic [place] [address] 2 D/M-MODE ECHOCARDIOGRAM Name: ARMANDO JIMENEZ Room: [address] Johnny Lopez#: [id number] Admission: 03/14/20 Attend Phys: Sahil Dunham Discharge: Date of : 46 Date of Service: 03/16/20 [facility][note 3] Report #: [id number] Great Vessels The aortic root is normal in size. IVC is normal in size and collapses >50% with inspiration. Pericardium Trace pericardial effusion. <Conclusion> The left ventricle is normal size. Mild concentric left ventricular hypertrophy. Left ventricular systolic function is mildly decreased. LVEF is 50-55%. Transmitral Doppler flow pattern suggests restrictive physiology. There is hypokinesis of the basal to mid inferolateral and lateral wall. Mild mitral regurgitation. Trace tricuspid regurgitation. The RVSP is 30-35 mmHg. IVC is normal in size and collapses >50% with inspiration. <ELECTRONICALLY SIGNED> By: Giuseppe Espinoza MD, FACC 03/16/20 1002 1002 1002 Giuseppe Espinoza MD, FACC /INF
[2020-03-16] MEDS ORDERED: FUROSEMIDE 20 M20 MG PO (11:24)
[2020-03-16] MEDS ORDERED: COZAAR 50 MG TA50 M1 PO (11:28)
--- NOTE | 2020-03-16 16:13 | EKG ---
[place] [address] ELECTROCARDIOGRAM REPORT Name: ARMANDO JIMENEZ Room: [address] IN [facility]#: [id number] Admission: 03/16/20 Attend Phys: Sahil Dunham Discharge: Date of : 46 Date of Service: 03/14/202234 Report #: [id number] THIS REPORT FOR: //name// [facility] Test Date: 2020-03-14 Test Time: 22:35:44 Pat Name: ARMANDO JIMENEZ Department: Room: [address] Gender: M Claims Director: [email or web address] : 1950 Requested By: Sahil Dunham Order Number: [id number] Leti MD: Shashank Yoo Measurements Intervals [place] Rate: 83 P: 27 HI: 161 QRS: 74 QRSD: 109 T: -43 QT: 416 QTc: 489 Interpretive Statements Sinus rhythm Inferior infarct, old possible Compared to ECG 03/14/2020 14:35:15 Myocardial infarct finding now present Sinus tachycardia no longer present Electronically Signed On 03-16-2020 16:10:57 CDT by Shashank Yoo [email or web address] <ELECTRONICALLY SIGNED> By: Shashank Yoo MD, [facility] 03/16/20 1610 2235 2235 Shashank Yoo MD, [facility] /EPI
[2020-03-17] VITALS (19 sets, daily range): BP systolic 91–121; BP diastolic 47–70
[2020-03-17 07:18] LABS: CALCIUM 7.6 mg/dL (8.5-10.1); CREATININE 1.5 mg/dL (0.6-1.3)
--- NOTE | 2020-03-17 14:14 | EKG ---
[place] [address] ELECTROCARDIOGRAM REPORT Name: ARMANDO JIMENEZ Room: [address] IN [facility].#: [id number] Admission: 03/16/20 Attend Phys: Sahil Dunham Discharge: Date of : 46 Date of Service: 03/17/20 1351 Report #: [id number] THIS REPORT FOR: //name// [facility] Test Date: 2020-03-17 Test Time: 13:51:05 Pat Name: ARMANDO JIMENEZ Department: Room: [address] Gender: M In Store Marketing Associate: : 1950 Requested By: Shashank Yoo Order Number: [id number] Leti MD: Shashank Yoo Measurements Intervals [place] Rate: 64 P: 44 CO: 175 QRS: 90 QRSD: 105 T: 9 QT: 462 QTc: 477 Interpretive Statements Sinus rhythm Inferior infarct, old Compared to ECG 03/14/2020 22:35:44 No significant changes Electronically Signed On 03-17-2020 14:12:21 CDT by Shashank Yoo [email or web address] <ELECTRONICALLY SIGNED> By: Shashank Yoo MD, [facility] 03/17/20 1412 1351 1351 Shashank Yoo MD, [facility] /EPI
--- NOTE | 2020-03-17 17:09 | CARD ---
[address] [address] CARDIAC CATH REPORT Name: ARMANDO JIMENEZ Room: [address] IN ..#: [id number] Admission: 03/16/20 Attend Phys: Chasity Gupta Discharge: Date of : 46 Report #: [id number] THIS REPORT FOR: //name// cc: Dennis Rhoades Vincent R. DO ~ APPROVED REPORT Study performed: 03/17/2020 10:47:22 Patient Details Patient Status: In-Patient Room #: The patient is a 69 year-old male Event Personnel Shashank Yoo Lead Software Tester, Beatrice Millan RN, Amarjit Fofana [employer] Scrub, Lisa Lambert RTR Monitor Procedures Performed Art Access - L femoral artery Left Heart Cath w/or w/o Coronaries REGINALD Place w/wo Plasty Single Left Main PTCA Addl Branch DIAG 1 Hemostasis w/ Angioseal Indication Unstable angina Risk Factors Hypercholesterolemia, Hypertension Previous Procedures/Diagnoses Previous PCI, Previous CO Admission/Lab Medications/Medications given during procedure Angiomax bolus and infusion Procedure Narrative The patient was brought electively to the Cardiac Catheterization Laboratory and was prepped and draped in a sterile manner. The left femoral was infiltrated with 2% Lidocaine subcutaneous anesthesia. A [place] 6 FR sheath was inserted into the left femoral artery. Coronary angiography was performed using coronary diagnostic catheters. The right coronary system was accessed and visualized with a Diagnostic 6 Fr JR 4 catheter. The left coronary system was accessed and visualized with a Guide 6 Fr XBLAD 3.5 catheter. The left ventricle was accessed and visualized with a Diagnostic 6 Fr Pigtail catheter. Left ventricular/A[place] [address] CARDIAC CATH REPORT Name: ARMANDO JIMENEZ Room: [address]#: [id number] Admission: 03/16/20 Attend Phys: Chasity Gupta Discharge: Date of : 46 Report #: [id number] catheter pullback. Closure device was deployed with a Fr Angioseal STS 6Fr. The patient tolerated the procedure well and there were no complications associated with the procedure. There was no hematoma. Intraoperative Conscious Sedation Sedation start time: 11:35 Case end Time: 12:49 Fentanyl 25 mcg Versed 1 mg Fluoro Time: 21.5 minutes Dose: DAP 523167 cGycm2 2661 mGy Contrast Type and Amount: Visipaque 210 ml Diagnostic Cath Left Main 80% distal left main ostial LAD stenosis LAD 80% ostial narrowing with widely patent proximal mid and distal LAD stents Diagonal 1 90% stenosis of the proximal portion of the prominent first diagonal branch Circumflex Nondominant vessel with 40% proximal narrowing Right Coronary Large dominant vessel with 40% proximal and distal narrowings with a widely patent mid right coronary stent Left Ventriculography Left Ventriculography was not performed. Hemodynamics The aortic pressure is 83/42 mmHg with a mean of 58 mmHg. The left ventricular pressure is 81/1 mmHg with a mean of mmHg. The left ventricular end diastolic pressure is 17 mmHg. PCI Technique Lesion Anticoagulation was achieved with Angiomax Drip. Patient was preloaded with Angiomax IV 13.5 ml. Percutaneous coronary intervention was performed on the first diagonal branch segment. The lesion stenosis prior to intervention was 90% with HERBERTH 3 flow. A 6F XB LAD 3.5 Guide Catheter was used to engage the left ostium. A IG: ProwaterFlex 180CM Interventional Guidewire was used to cross the lesion. BALLOON DILATION A Balloon catheter Mini Trek RX 1.2X8 was inserted and inflated up to 18.00atm for 13seconds. Additional Inflation: 20.00atm for 8seconds. A balloon catheter EA Trek RX 2.25 x 8mm was inserted and inflated up to 12 RENETTA for 8 seconds, 14 RENETTA for 7 seconds, 16 [place] for 8 [place] [address] CARDIAC CATH REPORT Name: ARMANDO JIMENEZ Room: [address] IN [facility]#: [id number] Admission: 03/16/20 Attend Phys: Chasity Gupta Discharge: Date of : 46 Report #: [id number] and 14 RENETTA for8 seconds. Final angiography reveals 30 % stenosis with HERBERTH 3 flow. PCI Technique Lesion 2 Percutaneous Coronary Intervention was performed on the Distal left main coronary artery extending into the proximal LAD. The lesion stenosis prior to intervention was 80% with HERBERTH 3 flow. A 6F XB LAD 3.5 Guide Catheter was used to engage the left ostium. A IG: ProwaterFlex 180CM Interventional Guidewire was used to cross the lesion. Balloon Dilation A Balloon catheter NC Trek RX 2.75 X 12 was inserted and inflated up to 18atm for 11seconds. Additional Inflation: 22atm for 6seconds. Stent Deployment A drug-eluting stent [place] RX Stent 2.86N87kj was inserted and inflated up to 18atm for 11seconds. Post Stent Deployment Balloon Dilation A Balloon catheter NC Trek RX 3.0 X 12 was inserted and inflated up to 17atm for 10seconds. Additional Inflation: 18atm for 6seconds. Final angiography reveals 0 % stenosis with HERBERTH 3 flow. Conclusion 1. Significant coronary artery disease characterized by the following: A 80% distal left main stenosis extending into the ostial LAD with widely patent proximal mid and distal LAD stents; there was 90% ostial first diagonal stenosis B 40% narrowing of the proximal portion of the nondominant circumflex C 40% proximal and distal right coronary narrowings with a widely patent mid right coronary stent, this being a dominant vessel 2. Moderate elevation of left ventricular end diastolic pressure at rest with mild [place] [address] CARDIAC CATH REPORT Name: ARMANDO JIMENEZ Room: [address] IN [facility]#: [id number] Admission: 03/16/20 Attend Phys: Chasity Gupta Discharge: Date of : 46 Report #: [id number] 3. Successful PTCA of a 90% ostial proximal first diagonal stenosis with 30% residual narrowing 4. Successful PCI with deployment of a drug-eluting stent at the site of 80% distal left main/ ostial LAD stenosis with 0% residual narrowing and HERBERTH-3 flow to the distal vessel Recommendations Cardiac Risk Reduction Program Medications Administered Prasugrel Diagnostic Cath Approved by: Shashank Yoo MD Date/Time: 03/17/2020 17:05:47 <ELECTRONICALLY SIGNED> By: Shashank Yoo MD, [facility] 03/17/20 1707 06 06Shashank Yoo MD, FAC /INF
[2020-03-18 04:00] VITALS: BP 122/54
[2020-03-18 05:28] LABS: HEMATOCRIT 33.5 % (42.0-52.0); HEMOGLOBIN 11.5 gm/dL (14.0-18.0); MCH 28.7 pg (26.0-34.0); MCHC 34.3 g/dL (28.0-37.0); MCV 83.7 fL (80.0-100.0); MPV 9.2 fl. (7.2-11.1); RBC 4.01 mil/uL (4.50-6.00); RDW-CV 13.6 % (10.5-14.5); WBC 8.8 thou/uL (4.0-11.0)
[2020-03-18 05:32] LABS: ALBUMIN 2.4 g/dL (3.4-5.0); ALKALINE PHOSPHATASE 70 U/L (46-116); ANION GAP 10 mmol/L (7-16); BUN 32 mg/dL (7-18); CHLORIDE 102 mmol/L (98-107); CHOLESTEROL 91 mg/dL (<200); CO2 24 mmol/L (21-32); CREATININE 1.3 mg/dL (0.6-1.3); GLUCOSE 68 mg/dL (70-99); HDL CHOLESTEROL 24 mg/dL (>40); LDL CHOLESTEROL 56 mg/dL (<100); POTASSIUM 3.8 mmol/L (3.5-5.1); SGOT 38 U/L (15-37); SGPT 27 U/L (30-65); SODIUM 136 mmol/L (136-145); TC:HDL 3.8 Ratio (Not establshd); TOTAL BILIRUBIN 0.7 mg/dL (<0.1-1.0); TOTAL PROTEIN 7.1 g/dL (6.4-8.2); TRIGLYCERIDE 59 mg/dL (<150); VLDL 12 mg/dL (<40)
[2020-03-18 05:36] LABS: SERUM ASSESSMENT CLEAR; TROPONIN-I LEVEL 5.77 ng/mL (<0.06)
[2020-03-18 08:00] VITALS: BP 128/63
--- NOTE | 2020-03-18 08:54 | EKG ---
[place] [address] ELECTROCARDIOGRAM REPORT Name: ARMANDO JIMENEZ Room: [address] IN ..#: [id number] Admission: 03/16/20 Attend Phys: Sahil Dunham Discharge: Date of : 46 Date of Service: 03/18/20826 Report #: [id number] THIS REPORT FOR: //name// [facility] Test Date: 2020-03-18 Test Time: 08:27:00 Pat Name: ARMANDO JIMENEZ Department: Room: [address] Gender: M Leather Carver: : 1950 Requested By: Shashank Yoo Order Number: [id number] Leti MD: Giuseppe Espinoza Measurements Intervals [place] Rate: 66 P: 60 OR: 165 QRS: 84 QRSD: 107 T: -14 QT: 450 QTc: 472 Interpretive Statements Sinus rhythm Inferior infarct, old Compared to ECG 03/17/2020 13:51:05 No significant changes Electronically Signed On 03-18-2020 8:52:46 CDT by Giuseppe Espinoza [email or web address] <ELECTRONICALLY SIGNED> By: Giuseppe Espinoza MD, [facility] 03/18/20 0852 6 6 Giuseppe Espinoza MD, [facility] /EPI
[2020-03-18] MEDS ORDERED: SORINE 80 MG TA80 M1 PO (12:15)
[2020-03-18 14:11] VITALS: BP 113/56
== END 2020-03-18 17:19 | disposition left against medical advice (07) | DRG 246 ==
LOC: M.ERS 14:32 → M.TBA-ER 16:06 → M.2W 16:06
PROVIDERS: Emergency Medicine Emergency Medical Services; Internal Medicine; ADMIT Internal Medicine
PROC: 4A023N7 Measurement of Cardiac Sampling and Pressure, Left Heart, Percutaneous Approach (ICD-10-PCS; principal; 2020-03-17)
PROC: B211YZZ Fluoroscopy of Multiple Coronary Arteries using Other Contrast (ICD-10-PCS; principal; 2020-03-17)
PROC: 02703ZZ Dilation of Coronary Artery, One Artery, Percutaneous Approach (ICD-10-PCS; principal; 2020-03-17)
PROC: 027034Z Dilation of Coronary Artery, One Artery with Drug-eluting Intraluminal Device, Percutaneous Approach (ICD-10-PCS; principal; 2020-03-17)
DX: I25.110 Atherosclerotic heart disease of native coronary artery with unstable angina pectoris (principal); J15.6 Pneumonia due to other Gram-negative bacteria; I50.43 Acute on chronic combined systolic (congestive) and diastolic (congestive) heart failure; E11.9 Type 2 diabetes mellitus without complications; I11.0 Hypertensive heart disease with heart failure; E78.00 Pure hypercholesterolemia, unspecified; M19.90 Unspecified osteoarthritis, unspecified site; N40.0 Benign prostatic hyperplasia without lower urinary tract symptoms; K21.9 Gastro-esophageal reflux disease without esophagitis; I25.2 Old myocardial infarction; Z95.5 Presence of coronary angioplasty implant and graft; Z79.4 Long term (current) use of insulin; Z79.82 Long term (current) use of aspirin; Z79.899 Other long term (current) drug therapy; Z90.49 Acquired absence of other specified parts of digestive tract